=== PATIENT | male | born 1985 | race Caucasian/White ===

== ENCOUNTER 2019-02-26 15:38 | Emergency (ER) | payer MEDICAID, OTHER ==
[~2019-02-26] VITALS: Ht 188 cm; Wt 86.2 kg
[2019-02-26 15:54] VITALS: BP_SYST 136
[2019-02-26] MEDS ORDERED: LORazepam 2 MG/ML VIAL IVP ONE ×2 (17:30→18:15)
[2019-02-26] MEDS ORDERED: NACL 0.9% 1,000 ML IV ONE (17:30)
[2019-02-26 17:54] LABS: BARBITURATE, URINE NEGATIVE (NEG <=200); BENZODIAZEPINE, URINE NEGATIVE (NEG <=150); CANNABINOID, URINE POSITIVE (NEG <=50); COCAINE, URINE NEGATIVE (NEG <=150); METHAMPHETAMINES SCREEN,URINE NEGATIVE (NEG <=500); OPIATE, URINE NEGATIVE (NEG <=100); PHENCYCLIDINE SCREEN,URINE NEGATIVE (NEG <=25); UR TRICYCLIC ANTIDEPRESSANTS NEGATIVE (NEG <=300); URINE AMPHETAMINE NEGATIVE (NEG <=500); URINE METHADONE NEGATIVE (NEG <=200); URINE OXYCODONE SCREEN NEGATIVE (NEG <=100); URINE PROPOXYPHENE SCREEN NEGATIVE (NEG <=300)
[2019-02-26 19:15] VITALS: BP_SYST 128
== END 2019-02-26 19:15 | disposition home or self-care (01) ==
LOC: SED 15:38
DX: F41.9 Anxiety disorder, unspecified (principal); F32.9 Major depressive disorder, single episode, unspecified; R03.0 Elevated blood-pressure reading, without diagnosis of hypertension; F12.90 Cannabis use, unspecified, uncomplicated
CPT/HCPCS: 80307; 93005; 96374; 96376; 99284; J2060; J7030

== ENCOUNTER 2019-03-21 08:25 | Emergency (ER) | payer MEDICAID ==
[~2019-03-21] VITALS: Ht 188 cm; Wt 86.2 kg
[2019-03-21 08:38] VITALS: BP_SYST 143
--- NOTE | 2019-03-21 08:40 | NUR ---
Patient to ER bed 06 to gown for evaluation. Side rails up.
--- NOTE | 2019-03-21 08:52 | NUR ---
Patient presented to ER C/O left ear pain. Patient A&Ox4, afebrile, ambulatory to ER, skin pink and warm, denies N/V/D, pain 07/18. Patient states he has pressure and ringing in left ear. Patient states yesterday he ahd dizziness and lightheaded, was seen at Urgent care and given Amoxacillin.
--- NOTE | 2019-03-21 09:10 | NUR ---
ER Dr. Samuel at bedside examining patient.
[2019-03-21 09:42] VITALS: BP_SYST 148
--- NOTE | 2019-03-21 09:42 | NUR ---
Patient given written and verbal discharge instructions and verbalizes understanding. ER MD discussed with patient the results and treatment provided. Patient in stable condition. ID arm band removed. Rx of Debrox 6.5% otic drops given. Patient educated on pain management and to follow up with PMD. Pain Scale 3/10 tolerable for patient. Opportunity for questions provided and answered. Medication side effect fact sheet provided.
== END 2019-03-21 09:42 | disposition home or self-care (01) ==
LOC: SED 08:25
DX: H61.22 Impacted cerumen, left ear (principal); F32.9 Major depressive disorder, single episode, unspecified; F41.9 Anxiety disorder, unspecified; K58.9 Irritable bowel syndrome, unspecified
CPT/HCPCS: 99282

== ENCOUNTER 2020-10-04 03:49 | Emergency (ER) | payer MEDICAID ==
[~2020-10-04] VITALS: Ht 188 cm; Wt 90.7 kg
[2020-10-04 04:00] VITALS: BP_SYST 144
--- NOTE | 2020-10-04 04:00 | NUR ---
DR. KIRBY AT BEDSIDE FOR EVALUATION.
--- NOTE | 2020-10-04 04:00 | NUR ---
Patient to ER bed 4 to gown for evaluation. Side rails up.
[2020-10-04] MEDS ORDERED: CYCL-10 PO (04:12)
--- NOTE | 2020-10-04 04:13 | NUR ---
PATIENT AAOX4 AND AMBULATORY C/O JAW PAIN X 3 DAYS AND INCREASING ANXIETY D/T PAIN. 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 HAS HISTORY OF ANXIETY. CURRENTLY STATING 3/10 ON THE PAIN SCALE. VSS. FAMILY AT BEDSIDE.
[2020-10-04] MEDS ORDERED: KETOROLAC TROMETHAMINE 60 MG/2 ML VIAL IM ONE (04:15)
--- NOTE | 2020-10-04 04:30 | NUR ---
MEDICATION HYDROXYZINE 50MG GIVEN PO INSTEAD OF IM. IM MEDICATION UNAVAILABLE. MD KIRBY MADE AWARE. CHANGED ORDER TO BE GIVEN PO. ADMINISTERED. PATIENT TOLERATED WELL.
--- NOTE | 2020-10-04 04:32 | NUR ---
Patient given written and verbal discharge instructions and verbalizes understanding. DR. MIRTA HOLLINGSWORTH MD discussed with patient the results and treatment provided. Patient in stable condition. ID arm band removed. Rx of FLEXRIL given. Patient educated on pain management and to follow up with PMD. Pain Scale 0/10. Opportunity for questions provided and answered. Medication side effect fact sheet provided.
[2020-10-04 04:37] VITALS: BP_SYST 144
== END 2020-10-04 04:32 | disposition home or self-care (01) ==
LOC: SED 03:49
DX: R68.84 Jaw pain (principal); F41.9 Anxiety disorder, unspecified; F32.9 Major depressive disorder, single episode, unspecified
CPT/HCPCS: 96372; 99283; J1885; J3410

== ENCOUNTER 2020-11-16 04:28 | Emergency (ER) | payer MEDICAID ==
[~2020-11-16] VITALS: Ht 188 cm; Wt 90.7 kg
[~2020-11-16 04:28] MED LIST: CYCL-10 PO
[2020-11-16 04:34] VITALS: BP_SYST 142
[2020-11-16] MEDS: NACL 0.9% 1,000 ML IV ONE (05:28)
[2020-11-16] MEDS: LORazepam 2 MG/ML VIAL IVP ONE (05:31)
[2020-11-16 05:56] LABS: BARBITURATE, URINE NEGATIVE (NEG <=200); BENZODIAZEPINE, URINE NEGATIVE (NEG <=150); CANNABINOID, URINE POSITIVE (NEG <=50); COCAINE, URINE NEGATIVE (NEG <=150); METHAMPHETAMINES SCREEN,URINE NEGATIVE (NEG <=500); OPIATE, URINE NEGATIVE (NEG <=100); PHENCYCLIDINE SCREEN,URINE NEGATIVE (NEG <=25); UR TRICYCLIC ANTIDEPRESSANTS NEGATIVE (NEG <=300); URINE AMPHETAMINE NEGATIVE (NEG <=500); URINE METHADONE NEGATIVE (NEG <=200); URINE PROPOXYPHENE SCREEN NEGATIVE (NEG <=300)
[2020-11-16 05:57] LABS: URINE OXYCODONE SCREEN NEGATIVE (NEG <=100)
[2020-11-16 06:01] LABS: ANION GAP 10 (5-15); BASOPHILS % (AUTO) 0.4 % (0.0-2.0); CALCIUM 9.7 mg/dL (8.4-11.0); CHLORIDE 102 mmol/L (98-107); CREATININE 1.34 mg/dL (0.55-1.30); EOSINOPHILS # (AUTO) 0.1 K/uL (0.0-0.4); EOSINOPHILS % (AUTO) 0.8 % (0.0-4.0); GLUCOSE 97 mg/dL (70-99); HEMATOCRIT 44.3 % (36-54); HEMOGLOBIN 14.9 g/dL (14.0-18.0); LYMPHOCYTES # (AUTO) 1.4 K/uL (1.0-5.5); LYMPHOCYTES % (AUTO) 13.2 % (20.5-51.5); MEAN CORPUSCULAR HEMOGLOBIN 30 pg (27-31); MEAN CORPUSCULAR HGB CONC 34 % (32-36); MEAN CORPUSCULAR VOLUME 90 fL (79.0-98.0); MONOCYTES # (AUTO) 0.9 K/uL (0.0-1.0); MONOCYTES % (AUTO) 8.2 % (1.7-9.3); NEUTROPHILS # (AUTO) 8.2 K/uL (1.8-7.7); NEUTROPHILS % (AUTO) 77.4 % (40.0-70.0); PLATELET COUNT (AUTO) 213 K/uL (130-430); POTASSIUM 3.9 mmol/L (3.5-5.1); RED BLOOD CELL COUNT(AUTO) 4.94 MIL/uL (4.2-6.2); RED CELL DISTRIBUTION WIDTH 13.6 % (9.0-15.0); SODIUM SERUM 140 mmol/L (136-145); UREA NITROGEN, BLOOD 26 mg/dL (8-21); WHITE BLOOD COUNT (AUTO) 10.6 K/uL (4.8-10.8)
[2020-11-16 06:02] LABS: ALCOHOL, BLOOD < 3 mg/dL (<10); GFR AFRICAN AMERICAN 79 mL/min (>90)
[2020-11-16] MEDS ORDERED: LORA-259 PO (06:05)
[2020-11-16 06:29] LABS: CKMB RELATIVE INDEX 0.9 (0.0-2.9); CREATINE KINASE MB 3.3 ng/mL (0-3.6)
[2020-11-16 07:03] VITALS: BP_SYST 142
== END 2020-11-16 07:03 | disposition home or self-care (01) ==
LOC: SED 04:28
DX: F41.1 Generalized anxiety disorder (principal); F32.9 Major depressive disorder, single episode, unspecified; Z79.899 Other long term (current) drug therapy
CPT/HCPCS: 36415; 80048; 80307; 82550; 82553; 83735; 85025; 96361; 96374; 99283; G0482; J2060; J7030

== ENCOUNTER 2023-05-08 10:07 | Emergency (ER) | payer MEDICAID ==
[~2023-05-08] VITALS: Ht 188 cm; Wt 86.2 kg
[~2023-05-08 10:07] MED LIST changes: -CYCL-10 PO; +CYCL10TA24 PO; +LORA-259 PO
[2023-05-08 11:30] VITALS: BP_SYST 125; PULSE 79; RESP 18; TEMP 97.8; O2SAT 97
[2023-05-08] MEDS ORDERED: SENN8.6T19 PO (13:47)
[2023-05-08] MEDS ORDERED: POLY119P2 PO (13:47)
[2023-05-08] MEDS ORDERED: HYDR30CR79 TP (13:47)
[2023-05-08] MEDS ORDERED: IBUP-1969 PO (13:47)
[2023-05-08 14:54] VITALS: BP_SYST 125; PULSE 82; RESP 18; TEMP 97.5; O2SAT 97
== END 2023-05-08 14:33 | disposition home or self-care (01) ==
LOC: SED 10:07
DX: K64.5 Perianal venous thrombosis (principal); K92.1 Melena; K59.00 Constipation, unspecified; Z79.899 Other long term (current) drug therapy
CPT/HCPCS: 99283

== ENCOUNTER 2023-06-14 00:19 | Emergency (ER) | payer MEDICAID ==
[~2023-06-14] VITALS: Ht 188 cm; Wt 83.9 kg
[~2023-06-14 00:19] MED LIST changes: +HYDR30CR79 TP; +IBUP-1969 PO; +POLY119P2 PO; +SENN8.6T19 PO
[2023-06-14 00:20] VITALS: BP_SYST 138; PULSE 70; RESP 20; TEMP 98.3; O2SAT 98
[2023-06-14 00:31] VITALS: BP_SYST 138; PULSE 70; RESP 20; TEMP 98.3; O2SAT 98
[2023-06-14] MEDS: LORazepam 2 MG/ML VIAL IM ONE (00:39)
== END 2023-06-14 00:31 | disposition home or self-care (01) ==
LOC: SED 00:19
DX: F41.9 Anxiety disorder, unspecified (principal); R07.9 Chest pain, unspecified; Z79.899 Other long term (current) drug therapy
CPT/HCPCS: 99283; 96372; J2060